=== PATIENT | male | born 1960 | race Caucasian/White ===

== ENCOUNTER 2020-03-30 06:41 | Day surgery (SDC) | payer SELFPAY ==
[~2020-03-30] VITALS: Ht 167.6 cm; Wt 83.0 kg
[~2020-03-30 06:41] MED LIST: ASPIRIN81 MG PO; BISOPRL/HCT1 PO; FISH OIL1000 MG PO; HYDROCHLOROT25 MG PO; LOSARTAN POTASS25 MG PO
[2020-03-30] MEDS ORDERED: LISINOPRIL20 MG PO (07:00)
[2020-03-30 09:10] VITALS: BP 99/57
== END 2020-03-30 09:05 | disposition home or self-care (01) | DRG 379 ==
LOC: ENDO 06:41 → ORM 08:00 → ENDO 08:00 → ORM 08:45 → ENDO 09:05
PROVIDERS: ATTEND Surgery
PROC: 0DJD8ZZ Inspection of Lower Intestinal Tract, Via Natural or Artificial Opening Endoscopic (ICD-10-PCS; principal; 2020-03-30)
DX: K57.33 Diverticulitis of large intestine without perforation or abscess with bleeding (principal); K64.8 Other hemorrhoids; I10 Essential (primary) hypertension; Z80.0 Family history of malignant neoplasm of digestive organs; Z86.010 Personal history of colon polyps; Z20.822 Contact with and (suspected) exposure to COVID-19